=== PATIENT | female | born 1970 | race Caucasian/White ===

== ENCOUNTER 2021-04-04 09:45 | Outpatient (REF) | payer MEDICAID, SELFPAY ==
[2021-04-04 10:49] LABS: COVID-19 Test Positive (Negative)
== END 2021-04-04 09:46 | disposition home or self-care (01) ==
LOC: HO.LAB 09:45
PROVIDERS: Visit Provider Internal Medicine
DX: Z20.822 Contact with and (suspected) exposure to COVID-19 (principal)
CPT/HCPCS: 87635; C9803